=== PATIENT | male | born 1945 | race Caucasian/White ===

== ENCOUNTER 2017-12-31 12:24 | Outpatient (CLI) | payer MEDICARE, OTHER ==
--- NOTE | 2017-12-31 14:19 | RAD ---
CHEST TWO VIEWS: History: Pre op. FINDINGS: No comparison. Cardiac silhouette is upper limits of normal. Pulmonary vasculature is unremarkable. M ediastinum is midline. There is no confluent airspace consolidation, pneumothorax, or pleural fluid e vident. IMPRESSION: No active cardiopulmonary abnormalities are demonstrated. POS: [facility]
[2017-12-31 15:02] LABS: Hemoglobin 15.3 g/dL (14.0-18.0); Mean Corpuscular HGB CONC 32.7 g/dL (32.0-36.0); Mean Corpuscular Hemoglobin 31.4 pg (27.0-31.0); Mean Corpuscular Volume 95.9 fl (80.0-94.0); Platelet Count 246 thou/uL (130-400); Red Blood Cell (RBC) Count 4.88 mill/uL (4.70-6.10); White Blood Cell (WBC) Count 6.2 thou/uL (4.8-10.8)
[2017-12-31 15:03] LABS: Bilirubin Negative (Negative); Blood, Urine Negative (Negative); Clarity CLEAR (Clear); Glucose, Urine (Dipstick) Negative (Negative); Leukocyte Negative (Negative); Nitrite Negative (Negative); Protein, Urine (Dipstick) Negative (Neg-Trace); Specific Gravity, Urine 1.015 (1.002-1.036); Urobilinogen 0.2 mg/dL (0.2-1.0); pH, Urine 6.5 (5.0-9.0)
[2017-12-31 15:09] LABS: Bacteria/HPF None Seen HPF (None Seen); Hyaline Casts/LPF 0-3 HYALINE CAST LPF (0-3 Hyaline); PTT 30.4 SEC (22.9-36.1); Pathc Cast-AUWi Flag 0.13 (0-2.49); Prothrombin Time 12.9 SEC (12.0-14.7); RBC/HPF 0-3 HPF (0-3); Squamous Epithelial None Seen HPF (0-3); WBC/HPF None Seen HPF (0-3)
[2017-12-31 15:20] LABS: Anion Gap 15 mmol/L (10-20); BUN (Urea Nitrogen) 17 mg/dL (8.4-25.7); Calc. Creatinine Clearance 0 mL/min (70-130); Calcium 9.7 mg/dL (7.8-10.44); Carbon Dioxide 27 mmol/L (23-31); Chloride 101 mmol/L (98-107); Estimated GFR-MDRD 73; Glucose 79 mg/dL (80-115); Potassium 4.6 mmol/L (3.5-5.1); Sodium 138 mmol/L (136-145)
--- NOTE | 2017-12-31 21:04 | EKG ---
Test Reason : Blood Pressure : / mmHG Vent. Rate : 057 BPM Atrial Rate : 057 BPM P-R Int : 204 ms QRS Dur : 104 ms QT Int : 410 ms P-R-T Axes : 068 058 030 degrees QTc Int : 399 ms Sinus bradycardia with marked sinus arrhythmia Otherwise normal ECG No previous ECGs available Confirmed by PRISCILA TUCKER ([id number]) on 12/31/2017 9:04:03 PM Referred By: [place] Confirmed By:PRISCILA TUCKER
== END 2017-12-31 12:25 | disposition home or self-care (01) ==
LOC: LABBT 12:24
PROVIDERS: ATTEND Orthopaedic Surgery
DX: Z01.818 Encounter for other preprocedural examination (principal); M17.12 Unilateral primary osteoarthritis, left knee
CPT/HCPCS: 71046; 80048; 81001; 85027; 85610; 85730; 87081; 93005; 93010

== ENCOUNTER 2018-01-08 11:27 | Outpatient (CLI) | payer MEDICARE, OTHER | END 2018-01-08 11:28 | disposition home or self-care (01) | LOC: LABBT 11:27 | PROVIDERS: ATTEND Orthopaedic Surgery | DX: Z01.818 Encounter for other preprocedural examination (principal); M17.12 Unilateral primary osteoarthritis, left knee | CPT/HCPCS: 86850; 86900; 86901 ==

== ENCOUNTER 2018-01-14 05:32 | Day surgery (SDC) | payer MEDICARE, OTHER ==
[2017-12-31 13:00] VITALS: BMI 29.4
[2018-01-14] MEDS ORDERED: Vancomycin HCl 1.5 GM in Sodium Chloride 0.9% 250 ML 300 ML IVPB SCH (06:15)
[2018-01-14] MEDS ORDERED: Midazolam HCl 2 mg/2 ml Vial ONE (06:18)
[2018-01-14] MEDS ORDERED: Fentanyl 100 MCG/2 ML VIAL ONE (06:18)
[2018-01-14] MEDS ORDERED: Tranexamic Acid 1,000 MG/100 ML BAG ONE ×2 (06:22→08:57)
[2018-01-14] MEDS ORDERED: CEFAZOLIN/Water 2 GM/20 ML SYRINGE ONE (06:22)
[2018-01-14] MEDS ORDERED: Zolpidem Tartrate 5 MG TAB PO PRN ×2 (07:02→07:25)
[2018-01-14] MEDS ORDERED: Promethazine HCl 25 MG/ML VIAL IM PRN ×3 (07:02→07:31)
[2018-01-14] MEDS ORDERED: Fentanyl 100 MCG/2 ML VIAL SLOW IVP PRN ×2 (07:02)
[2018-01-14] MEDS ORDERED: diphenhydrAMINE 25 MG CAP PO PRN (07:02)
[2018-01-14] MEDS ORDERED: Ondansetron HCl/PF 4 MG/2 ML Vial IVP PRN ×3 (07:02→07:31)
[2018-01-14] MEDS ORDERED: Acetaminophen 325 MG TAB PO PRN (07:02)
[2018-01-14] MEDS ORDERED: traMADol HCl 50 MG TAB PO PRN ×3 (07:02→07:25)
[2018-01-14] MEDS ORDERED: HYDROcodone/Acetaminophen 10/325 mg Tablet PO PRN ×3 (07:02→07:25)
[2018-01-14] MEDS ORDERED: Tranexamic Acid 1,000 MG in Sodium Chloride 0.9% 100 ML IVPB SCH ×4 (07:15)
[2018-01-14] MEDS ORDERED: Ropivacaine 0.2% 550 ML 550 ML NERVE BLCK SCH (07:25)
[2018-01-14] MEDS ORDERED: Fentanyl 100 MCG/2 ML VIAL IV PRN (07:26)
[2018-01-14] MEDS ORDERED: Promethazine HCl 25 MG/ML VIAL SLOW IVP PRN (07:31)
--- NOTE | 2018-01-14 09:23 | OP ---
PREOPERATIVE DIAGNOSIS: Degenerative joint disease of left knee. POSTOPERATIVE DIAGNOSIS: Degenerative joint disease of left knee. SURGEON: Baljit Lazo M.D. [employer]: Cindi Cruz PA-C TITLE OF PROCEDURE: Left total knee arthroplasty using [place] Triathlon 6 femur, 5 tibia, 9 mm X3 p olyethylene insert and an A35 patella. PROCEDURE IN DETAIL: After informed consent was obtained in the preoperative holding area. The erika ent was taken to the operative suite where general anesthesia was induced. Once adequate level of ge neral anesthesia was obtained, the patient was positioned and a well-padded tourniquet was placed pankaj und the left proximal thigh. The left lower extremity was then prepped and draped in the usual steri le fashion. Prior to exsanguination, a time out was called and all members of the surgical team agre ed upon site, surgeon, and patient. The extremity was then exsanguinated and the tourniquet was rais ed. A midline longitudinal incision was then made directly over the patella extending two fingerbrea dths above the superior pole of the patella and two fingerbreadths inferior to the inferior patellar pole of the patella. Deeper subcutaneous layers were dissected sharply and local bleeding was contro lled with Bovie electrocautery. A quad tendon longitudinal split was then made sharply and a median parapatellar arthrotomy was carried out both sharp and with Bovie electrocautery, carried down to one fingerbreadth medial to the tibial tubercle. The knee was then placed into flexion and the patella was everted nicely, and a copious fat pad ectomy was performed allowing for greater exposure of the t ibia. The computer-assisted distal femoral fiducial was then placed and pinned firmly, and the dista l femoral cutting guide was pinned firmly into place. The oscillating saw was then used to remove th e appropriate amount of bone. The 4-in-1 cutting block was then placed on the distal femur and the o scillating saw was used to remove the appropriate amount of bone off of the anterior, posterior, and chamfer cuts. After completion of bone cuts, the anterior cruciate ligament was resected sharply and the posterior cruciate ligament retractor was placed and the tibia was subluxed for better exposure. Partial meniscectomies were carried out, and the tibial computer-assisted fiducial was pinned, and the cutting guide was placed. Oscillating saw was then used to remove the bone with Hohmann retracto rs used to take care and protect the collateral ligaments. After the tibial resection was performed, a laminar reacher was placed in between the freshened bone cuts. The knee placed at 90 degrees and further bilateral meniscectomies were carried out, and the curved osteotome and curettage was used t o remove any excess bone spurs in the posterior compartment. Exparel was then injected into the post erior capsule, mars-articular synovia, pre-patella synovia, and musculature surrounding the capsule. The trial femoral component, tibial baseplate were placed with the appropriate polyethylene trial in sert with an appropriate polyethylene spacer and patellar button. The knee was taken through full ra nge of motion with flexion and extension from 0-90 degrees and patellar broach squarely in the trochl ea without any squinting or subluxation noted. The knee was also stable to varus and valgus stressin g at 0, 15, 45, and 90 degrees of flexion. The drawer was negative. All trial components were then r emoved and the keel punch was used to provide the appropriate defect in the tibia with a mallet. The freshened bone cuts were copiously irrigated with pulsatile lavage of about 1-1/2 liters to remove a ll excess debris. The freshened bone cuts were then dried and with suction and lap sponge. The knee was placed in flexion and retractors were placed to provide access to all bone cuts. Tobramycin imp regnated methyl methacrylate cement was then placed on the freshened bone cuts and implants which wer e malleted firmly into place. Curettage and Butler elevators were used to remove any excess bone ceme nt. The knee was placed into full extension and the patellar button was placed under compression, an d the cement was allowed to cure. Once completed, the components were again taken through full range of motion and copious irrigation of the knee was carried out with another liter of normal saline. A ll components were inspected fully with full range of motion and varus and valgus stressing. There wa s no laxity noted and full extension was observed clinically. Primary closure was accomplished with #2 interrupted Vicryl stitch of the arthrotomy defect. This was oversewn with a #2 running Quill bar bed stitch. The gravitational platelet system was then injected into the arthrotomy prior to closure . The subcutaneous layer was then closed with a running 0 barbed Monocryl stitch and skin closure ac complished with a running subcuticular 3-0 Monocryl barbed Quill stitch and augmented with cement on the skin. Tourniquet was lowered. Good spontaneous return of distal pulses was noted clinically and a sterile dressing was applied to the incision. The procedure was terminated without any complicati ons. The patient was awakened in the operative suite and the tourniquet was removed, and the patient was taken to the recovery room in stable condition.
--- NOTE | 2018-01-14 10:35 | RAD ---
TWO VIEWS LEFT KNEE: Comparison: None. History: Status post arthroplasty. FINDINGS: Two views left knee shows the patient to be status post left knee arthroplasty without perihardware l ucency or fracture. Air in the soft tissues is from recent surgery. IMPRESSION: Status post left knee arthroplasty without evidence of complication. POS: [facility]
[2018-01-14] MEDS: Sodium Chloride 0.9% 1,000 ML IV SCH ×3 (11:13→22:00)
[2018-01-14] MEDS: Atorvastatin Calcium 10 MG TAB PO SCH (11:16)
[2018-01-14] MEDS: Aspirin 81 mg Enteric Coated Tablet PO SCH ×2 (11:16→21:04)
[2018-01-14] MEDS: Multivitamin W/ Minerals 1 TAB PO SCH (11:17)
[2018-01-14] MEDS: Ferrous Gluconate 324 MG TAB PO SCH ×2 (11:17→21:04)
[2018-01-14] MEDS: Senokot S 8.6-50 MG TAB PO SCH ×2 (11:17→21:12)
[2018-01-14] MEDS: Lisinopril/Hydrochlorothiazide 10 mg/12.5 mg Tablet PO SCH (11:17)
[2018-01-14] MEDS: CeleCOXIB 100 MG CAP PO SCH (11:17)
[2018-01-14] MEDS ORDERED: Ketorolac Tromethamine 30 MG/ML VIAL IVP SCH (12:00)
[2018-01-14] MEDS: Ketorolac Tromethamine 30 MG/ML VIAL IM SCH ×2 (14:24→21:04)
[2018-01-14] MEDS: CEFAZOLIN/Water 2 GM/20 ML SYRINGE SLOW IVP SCH ×2 (14:24→21:05)
[2018-01-14] MEDS ORDERED: hydrALAZINE 20 MG/ML VIAL SLOW IVP PRN (14:43)
--- NOTE | 2018-01-14 14:45 | PDOC.PN ---
- Subjective Encounter Start Date: 01/14/18 Encounter Start Time: 14:44 Pt seen for management of medical comorbidities, including hypertension. Denies chest pain, shortness of breath, fevers or chills. - Objective MAR Reviewed: Yes Vital Signs & Weight: Vital Signs (12 hours) Temp Pulse Resp BP Pulse Ox 01/14/18 10:59 97.2 F L 67 18 100 01/14/18 10:50 97.2 F L 67 18 143/85 H 100 Weight Weight 205 lb Phys Exam - Physical Examination Constitutional: NAD HEENT: moist MMs Neck: supple Respiratory: clear to auscultation bilateral Cardiovascular: RRR Gastrointestinal: soft s/p L knee surgery Neurological: moves all 4 limbs Psychiatric: normal affect Dx/Plan (1) HTN (hypertension) Code(s): I10 - ESSENTIAL (PRIMARY) HYPERTENSION Status: Chronic (2) Dyslipidemia Code(s): E78.5 - HYPERLIPIDEMIA, UNSPECIFIED Status: Chronic (3) Arthritis Code(s): M19.90 - UNSPECIFIED OSTEOARTHRITIS, UNSPECIFIED SITE Status: Chronic - Plan PT/OT, out of bed/ambulate * . Monitor vital signs, titrate antihypertensives as needed. PRN IV hydralazine for blood pressure spikes. Continue statin. s/p L knee surgery. DVT prophylaxis and pain management per orthopedic surgery. Code status: Full Review of Systems - Medications/Allergies Allergies/Adverse Reactions: Allergies Allergy/AdvReac Type Severity Reaction Status Date / Time No Known Allergies Allergy Verified 12/31/17 13:01 Medications: Current Medications Acetaminophen (Tylenol) 650 mg PO Q4H PRN PRN Reason: KRUSE/ T > 101F; Mild Pain (1-3) Hydrocodone Bitart/Acetaminophen ([place] 10/325) 1 tab PO Q4H PRN PRN Reason: Moderate Pain (4-6) Hydrocodone Bitart/Acetaminophen ([place] 10/325) 2 tab PO Q4H PRN PRN Reason: Severe Pain (7-10) Hydrocodone Bitart/Acetaminophen ([place] 10/325) 1 tab PO Q4H PRN PRN Reason: Pain (1-3) Hydrocodone Bitart/Acetaminophen ([place] 10/325) 2 tab PO Q4H PRN PRN Reason: PAIN (4-6) Aspirin (Ecotrin) 81 mg PO BID [facility] Last Admin: 01/14/18 11:16 Dose: Not Given Atorvastatin Calcium (Lipitor) 10 mg PO QAM [facility] Last Admin: 01/14/18 11:16 Dose: Not Given Cefazolin Sodium (Ancef) 2 gm SLOW IVP Q8HR [facility] Stop: 01/14/18 22:01 Last Admin: 01/14/18 14:24 Dose: 2 gm Celecoxib (Celebrex) 200 mg PO DAILY [facility] Last Admin: 01/14/18 11:17 Dose: Not Given Diphenhydramine HCl (Benadryl) 25 mg PO Q6H PRN PRN Reason: Itching Fentanyl (Sublimaze) 50 mcg SLOW IVP Q30MIN PRN PRN Reason: Moderate Pain (4-6) Fentanyl (Sublimaze) 100 mcg SLOW IVP Q1H PRN PRN Reason: Severe Pain (7-10) Fentanyl (Sublimaze) 50 mcg IV Q1H PRN PRN Reason: BREAKTHROUGH PAIN Ferrous Gluconate (Fergon) 324 mg PO BID [facility] Last Admin: 01/14/18 11:17 Dose: Not Given Lisinopril/HCTZ (Prinizide 10-12.5) 1 tab PO QAM [facility] Last Admin: 01/14/18 11:17 Dose: Not Given Hydralazine HCl (Apresoline) 10 mg SLOW IVP Q6H PRN PRN Reason: SBP Greater Than 170 Sodium Chloride (Normal Saline 0.9%) 1,000 mls @ 100 mls/hr IV .Q10H [facility] Last Admin: 01/14/18 11:13 Dose: Not Given Ropivacaine (Ropivacaine 0.2% 550 Ml) 550 mls @ 0 mls/hr NERVE BLCK INF [facility] PRN Reason: As Directed Influenza Virus Vaccine (Fluzone High-Dose Syr) 0.5 ml IM .ONCE ONE Stop: 01/14/18 21:01 Iron/Minerals/Multivitamins (Theragran M) 1 tab PO DAILY [facility] Last Admin: 01/14/18 11:17 Dose: Not Given Ketorolac Tromethamine (Toradol) 15 mg IM Q8HR [facility] Stop: 01/16/18 14:01 Last Admin: 01/14/18 14:24 Dose: 15 mg Ondansetron HCl (Zofran) 4 mg IVP Q6H PRN PRN Reason: Nausea/Vomiting Ondansetron HCl (Zofran) 4 mg IVP Q6H PRN PRN Reason: Nausea/Vomiting Promethazine HCl (Phenergan) 12.5 mg IM Q4H PRN PRN Reason: Nausea/Vomiting Promethazine HCl (Phenergan) 12.5 mg IM Q4H PRN PRN Reason: Nausea Senna/Docusate Sodium (Senokot S) 2 tab PO BID [facility] Last Admin: 01/14/18 11:17 Dose: Not Given Sodium Chloride (Flush - Normal Saline) 10 ml IVF PRN PRN PRN Reason: Saline Flush Tramadol HCl (Ultram) 100 mg PO Q6H PRN PRN Reason: Mild Pain (1-3) Tramadol HCl (Ultram) 50 mg PO Q6H PRN PRN Reason: Mild Pain (1-3) Tramadol HCl (Ultram) 100 mg PO Q6H PRN PRN Reason: Moderate Pain 4-6 Zolpidem Tartrate (Ambien) 5 mg PO HSPRN PRN PRN Reason: Insomnia Zolpidem Tartrate (Ambien) 5 mg PO HSPRN PRN PRN Reason: Insomnia
[2018-01-14] MEDS ORDERED: Ropivacaine 0.5% HCl/PF (150 MG/30 ML VIAL) ONE (16:10)
[2018-01-14] MEDS ORDERED: Ropivacaine 0.2% HCl/PF (40 MG/20 ML VIAL) ONE (16:10)
[2018-01-14] MEDS ORDERED: Glycopyrrolate 0.2 MG/ML 5 ML SYRINGE ONE (16:41)
[2018-01-14] MEDS ORDERED: ePHEDrine/0.9% NaCl/PF SYRINGE 50 mg/10 ml ONE (16:41)
[2018-01-14] MEDS ORDERED: Ketorolac Tromethamine 30 MG/ML VIAL ONE (16:41)
[2018-01-14] MEDS ORDERED: Lidocaine 1% PF 5 ML VIAL ONE (16:41)
[2018-01-14] MEDS ORDERED: Propofol 200 MG/20 ML VIAL ONE (16:41)
[2018-01-14] MEDS ORDERED: Ondansetron HCl/PF 4 MG/2 ML Vial ONE (16:41)
[2018-01-14] MEDS: HYDROcodone/Acetaminophen 10/325 mg Tablet PO PRN (18:53)
[2018-01-14] MEDS ORDERED: FLU VACC TS2017-18 (>65YR) 0.5 ML SYRINGE IM ONE (21:00)
[2018-01-15] MEDS: HYDROcodone/Acetaminophen 10/325 mg Tablet PO PRN (04:31)
[2018-01-15 04:45] LABS: Hemoglobin 11.4 g/dL (14.0-18.0); Mean Corpuscular Hemoglobin 31.5 pg (27.0-31.0); Mean Corpuscular Volume 95.6 fl (80.0-94.0); Mean Platelet Volume 7.9 fL (7.4-10.4); Platelet Count 175 thou/uL (130-400); RBC Distribution Width 11.8 % (11.5-14.5); Red Blood Cell (RBC) Count 3.61 mill/uL (4.70-6.10); White Blood Cell (WBC) Count 7.6 thou/uL (4.8-10.8)
[2018-01-15] MEDS: Ketorolac Tromethamine 30 MG/ML VIAL IM SCH ×2 (06:42→14:12)
[2018-01-15] MEDS: Multivitamin W/ Minerals 1 TAB PO SCH (08:36)
[2018-01-15] MEDS: Ferrous Gluconate 324 MG TAB PO SCH (08:36)
[2018-01-15] MEDS: Atorvastatin Calcium 10 MG TAB PO SCH (08:36)
[2018-01-15] MEDS: Aspirin 81 mg Enteric Coated Tablet PO SCH (08:36)
[2018-01-15] MEDS: CeleCOXIB 100 MG CAP PO SCH (08:37)
[2018-01-15] MEDS: Senokot S 8.6-50 MG TAB PO SCH (08:37)
[2018-01-15] MEDS ORDERED: Lisinopril/Hydrochlorothiazide 10 mg/12.5 mg Tablet PO SCH (09:00)
[2018-01-15] MEDS: Lisinopril/Hydrochlorothiazide 10 mg/12.5 mg Tablet PO SCH (10:26)
[2018-01-15] MEDS: Sodium Chloride 0.9% 1,000 ML IV SCH (13:02)
[2018-01-15 15:48] VITALS: BP 116/61; TEMP 98.6
== END 2018-01-15 16:13 | disposition home or self-care (01) ==
LOC: SDC 05:32 → SJJU 07:02 → SDC 01-15 16:13
PROVIDERS: ATTEND Orthopaedic Surgery
PROC: 0SRD0J9 Replacement of Left Knee Joint with Synthetic Substitute, Cemented, Open Approach (ICD-10-PCS; principal; 2018-01-14)
DX: M17.12 Unilateral primary osteoarthritis, left knee (principal); I10 Essential (primary) hypertension; E78.5 Hyperlipidemia, unspecified; F32.9 Major depressive disorder, single episode, unspecified; Z79.899 Other long term (current) drug therapy; Z98.890 Other specified postprocedural states; Z87.891 Personal history of nicotine dependence
CPT/HCPCS: 27447; 73560; 85027; 97116 ×2; 97139 ×2; 97150; 97530; A4306; C1713; C1776; G0008; G8978; G8979; Q2036; 36415; 90471; 90682; J1885; J2001; J2250; J2405; J2704; J2795; J3010; J3370; J7050